=== PATIENT | male | born 1995 | race Hispanic/Latino ===

== ENCOUNTER 2016-12-19 08:46 | Outpatient (CLI) | payer OTHER ==
--- NOTE | 2016-12-19 14:00 | RAD ---
LUMBAR SPINE THREE VIEWS: 12/19/2016 FINDINGS: No fracture, dislocation, or acute bony change is seen. There might be some marginal disk space delmy rowing at L4-L5, but this is an equivocal finding. The study otherwise appears normal. The SI join ts are difficult to evaluate due to overlying gas and fecal material but are probably normal. IMPRESSION: 1. No acute findings. 2. Equivocal slight narrowing at L4-L5. POS: GARY
== END 2016-12-19 08:47 | disposition home or self-care (01) ==
LOC: BURRAD 08:46
PROVIDERS: ATTEND Family Medicine
DX: M54.41 Lumbago with sciatica, right side (principal)
CPT/HCPCS: 72100